=== PATIENT | female | born 1970 | race Caucasian/White ===

== ENCOUNTER 2019-12-17 17:31 | Inpatient (IN) | payer OTHER ==
--- NOTE | 2019-12-17 18:14 | PDOC ---
History of Present Illness - General Chief Complaint: Blood Transfusion Stated Complaint: BLOOD TRANSFUSION Time Seen by Provider: 12/17/19 17:46 History Source: Patient Exam Limitations: No Limitations - History of Present Illness Initial Comments: 12/17/19 18: 10 49-year-old female history of ulcerative colitis currently controlled also history of heavy vaginal bleeding and perimenopausal here today with a incidental finding of anemia. Patient was applying for a job getting preemployment work-up found to have a hemoglobin of 4. She does describe feeling fatigue lately which she attributed to a hectic schedule and many late nights working does have a history of very heavy vaginal bleeding previously would bleed around 10 days at a time however she has been perimenopausal and is not bleeding as often lately she is currently menstruating however. As far as ulcerative colitis has not had a flare in many years. She does state that she has a history of anemia previously and was taking iron and controlling with diet however she switched to a vegetarian diet and stopped taking iron due to constipation. Primary doctor is Dr. Alva Past History - Medical History Allergies/Adverse Reactions: Allergies Allergy/AdvReac Type Severity Reaction Status Date / Time No Known Allergies Allergy Verified 12/17/19 18:20 Home Medications: Ambulatory Orders NK [No Known Home Medication] 12/17/19 Review of Systems - Review of Systems Constitutional: No: Chills, Diaphoresis HEENTM: No: Eye Pain Respiratory: No: Cough, Orthopnea, Shortness of Breath Cardiac (ROS): No: Chest Pain ABD/GI: No: Abdominal Distended, Nausea Integumentary: No: Bruising, Change in Color Endocrine: Yes: Other (fatigue) All Other Systems: Reviewed and Negative *Physical Exam - Physical Exam 12/17/19 18:12 Awake alert no acute distress lungs are clear bilaterally heart is regular no mu rmurs rubs or gallops abdomen is soft and nontender extremities are warm well perfused skin is warm and dry extremities are without obvious edema patient does have varicosities to bilateral lower extremities neurologically she is awake alert and oriented x3 Heart Score/ECG Review #1 ECG reviewed & interpreted by me at: 18:20 General ECG Interpretation: Sinus Rhythm, Normal Rate (78), Normal Intervals, No acute ischemic changes ED Treatment Course - LABORATORY CBC & Chemistry Diagram: 12/17/19 18:10 Medical Decision Making - Medical Decision Making 12/17/19 18:13 49-year-old female history of previous anemia also colitis which is controlled and dysfunctional uterine bleeding currently undergoing menopause but is having her menstruation currently with anemia hemoglobin 4.0 differential includes lab error iron deficiency anemia lytic process less likely patient denies any recent infectious symptoms or jaundice. Plan basic CBC CMP type and screen will add iron studies and anemia work-upIf the patient's hemoglobin is that low she require admission and likely transfusion risk-benefit transfusion discussed the patient she is currently deciding whether or not she will be agreeable Discharge - Discharge Information Problems reviewed: Yes Clinical Impression/Diagnosis: Anemia Condition: Good - Admission Yes - Follow up/Referral Referrals: Quique Alva MD [Primary Care Provider] - - Patient Discharge Instructions - Post Discharge Activity
[2019-12-17 18:19] VITALS: BMI 20.8
[2019-12-17 18:40] LABS: MCHC 27.5 g/dl (32.0-36.0); MEAN CELL VOLUME 54.4 fl (80-96); MEAN PLT VOLUME 7.5 fl (7.5-11.1); PLATELET COUNT 716 K/MM3 (134-434); RBC 2.95 M/mm3 (3.60-5.2); RDW 22.8 % (11.6-15.6); WHITE BLOOD COUNT 8.6 K/mm3 (4.0-10.8)
[2019-12-17 18:42] LABS: HEMATOCRIT 16.1 % (32.4-45.2); HEMOGLOBIN 4.4 GM/dl (10.7-15.3)
[2019-12-17 18:44] LABS: ALBUMIN 3.5 g/dl (3.4-5.0); BILIRUBIN,TOTAL 0.4 mg/dl (0.2-1); CREATININE 0.8 mg/dl (0.55-1.3); POTASSIUM 4.4 mmol/L (3.5-5.1); TOT PROT 6.1 g/dl (6.4-8.2)
--- NOTE | 2019-12-17 20:51 | PDOC ---
*Physical Exam - Vital Signs Last Vital Signs Temp Pulse Resp BP Pulse Ox 97.9 F 86 16 118/56 L 100 12/17/19 17:32 12/17/19 17:32 12/17/19 17:32 12/17/19 17:32 12/17/19 17:32 ED Treatment Course - LABORATORY CBC & Chemistry Diagram: 12/17/19 18:10 12/17/19 17:53 - ADDITIONAL ORDERS Additional order review: Laboratory Results 12/17/19 12/17/19 12/17/19 18:15 18:10 17:53 Sodium 136 Potassium 4.4 Chloride 107 Carbon Dioxide 22 Anion Gap 7 L BUN 11.0 Creatinine 0.8 Est GFR (CKD-EPI)AfAm 100.33 Est GFR (CKD-EPI)NonAf 86.57 Random Glucose 101 Calcium 9.0 Iron 6 L TIBC 432 Total Bilirubin 0.4 AST 20 ALT 14 Alkaline Phosphatase 70 LD Total 150 Total Protein 6.1 L Albumin 3.5 Serum Folate 11 Blood Type O POSITIVE O POSITIVE Antibody Screen Negative Crossmatch See Detail 12/17/19 18:10 RBC 2.95 L MCV 54.4 L MCHC 27.5 L RDW 22.8 H MPV 7.5 Neutrophils % No Result Required. Lymphocytes % No Result Required. ED Progress Note - Progress Note Progress Note: Care of this patient received from Dr. Stewart. The patient will be transfused with 2 units of packed red blood cells for her hemoglobin up to 4.4/hematocrit 16.1. Abdominal/pelvic CT also ordered for work-up of her anemia and weakness CT performed and interpreted by Dr. Dumont of the radiology staff: No evidence of acute pathology in the abdomen or pelvis Medical Decision Making - Medical Decision Making 12/17/19 21:59 [facility] The patient will be admitted to Dr. Leonor Morales's service, [facility] bed Discharge - Discharge Information Problems reviewed: Yes Clinical Impression/Diagnosis: Anemia Condition: Stable - Admission Yes - Follow up/Referral - Patient Discharge Instructions - Post Discharge Activity
--- OUTSIDE RECORDS SUMMARY | 2019-12-17 22:09 | XMS ---
:1970 Author Organization [facility] Support Name Relationship Address Phone [facility] Unavailable [address] [place] [place] [address] [place] [address] [place] [address] Re-disclosure Warning The records that you are about to access may contain information from federally- assisted alcohol or drug abuse programs. If such information is present, then the following federally mandated warning applies: This information has been disclosed to you from records protected by federal confidentiality rules (42 CFR part 2). The federal rules prohibit you from making any further disclosure of this information unless further disclosure is expressly permitted by the written consent of the person to whom it pertains or as otherwise permitted by 42 CFR part 2. A general authorization for the release of medical or other information is NOT sufficient for this purpose. The Federal rules restrict any use of the information to criminally investigate or prosecute any alcohol or drug abuse patient.The records that you are about to access may contain highly sensitive health information, the redisclosure of which is protected by Article 27-F of the [facility] Public Health law. If you continue you may haveaccess to information: Regarding HIV / AIDS; Provided by facilities licensed or operated by the [facility] Office of Mental Health; or Provided by the [facility] Office for People With Developmental Disabilities. If such information is present, then the following [facility] mandated warning applies: This information has been disclosed to you from confidential records which are protected by state law. State law prohibits you from making any further disclosure of this information without the specific written consent of the person to whom it pertains, or as otherwise permitted by law. Any unauthorized further disclosure in violation of state law may result in a fine or half-way sentence or both. A general authorization for the release of medical or other information is NOT sufficient authorization for further disclosure. Insurance Providers Payer name Policy type Policy ID Covered Covered democrat's Policy P skip / Coverage democrat ID relationship to [employer] Inf ormation type ruelas [place] [id number] [facility]
[2019-12-17 23:18] LABS: ANISOCYTOSIS 3+
[2019-12-17 23:19] LABS: PLATELET ESTIMATE INCREASED
--- NOTE | 2019-12-17 23:23 | HP ---
CHIEF COMPLAINT: weakness, here with severe anemia PCP: Dr. Alva HISTORY OF PRESENT ILLNESS: 49-year-old female with a past medical history of anemia, ulcerative colitis currently in remission, heavy menstrual bleeding, now has menstrual bleeding/cycle and perimenopausal who presents today with an incidental finding of severe anemia. She was applying for a job getting pre employment work-up and she was found to have a hemoglobin of 4.4 and hct 16.1. She does describe feeling fatigue lately which she attributed to a hectic schedule and many late nights working . She has a history of heavy vaginal bleeding previously would bleed around 10 days at a time however she has been perimenopausal and is not bleeding as often lately she is currently menstruating however. She denies symptoms of chest pain, shortness of breath, dizziness, syncopy, palpitations, fever, chills or malasie. ER course was notable for: (1)severe anemia- hgb 4.4, hct 16.1, receiving 2 Units PRBC's (2) iron level low Recent Travel: no PAST MEDICAL HISTORY: anemia ulcerative colitis PAST SURGICAL HISTORY: none Social History: Smoking:no Alcohol:no Drugs: no Family History Allergies No Known Allergies Allergy (Verified 12/17/19 18:20) HOME MEDICATIONS: Home Medications Medication Instructions Recorded NK [No Known Home Medication] 12/17/19 REVIEW OF SYSTEMS CONSTITUTIONAL: Absent: fever, chills, diaphoresis, fatigue, malaise, loss of appetite, weight change HEENT: Absent: rhinorrhea, nasal congestion, throat pain, throat swelling, difficulty swallowing, mouth swelling, ear pain, eye pain, visual changes CARDIOVASCULAR: Absent: chest pain, syncope, palpitations, irregular heart rate, lightheadedness, peripheral edema RESPIRATORY: Absent: cough, shortness of breath, dyspnea with exertion, orthopnea, wheezing, stridor, hemoptysis GASTROINTESTINAL: Absent: abdominal pain, abdominal distension, nausea, vomiting, diarrhea, constipation, melena, hematochezia GENITOURINARY: Absent: dysuria, frequency, urgency, hesitancy, hematuria, flank pain, genital pain, heavy menstrual bleeding MUSCULOSKELETAL: Absent: myalgia, arthralgia, joint swelling, back pain, neck pain SKIN: Absent: rash, itching, pallor HEMATOLOGIC/IMMUNOLOGIC: Absent: easy bleeding, easy bruising, lymphadenopathy, frequent infections ENDOCRINE: Absent: unexplained weight gain, unexplained weight loss, heat intolerance, cold intolerance NEUROLOGIC: Absent: headache, focal weakness or paresthesias, dizziness, unsteady gait, seizure, mental status changes, bladder or bowel incontinence PSYCHIATRIC: Absent: anxiety, depression, suicidal or homicidal ideation, hallucinations. PHYSICAL EXAMINATION Vital Signs - 24 hr 12/17/19 12/17/19 12/17/19 17:32 20:51 21:00 Temperature 97.9 F 97.9 F Pulse Rate 86 86 Respiratory 16 16 16 Rate Blood Pressure 118/56 L 118/56 L O2 Sat by Pulse 100 100 100 Oximetry (%) 12/17/19 23:04 Temperature 98.4 F Pulse Rate 73 Respiratory 18 Rate Blood Pressure 111/57 L O2 Sat by Pulse 100 Oximetry (%) General no acute distress Vital signs reviewed afebrile Neck no JVD Lungs CTA nonlabored breathing effort no use of accessory muscles Heart s1s2 rate regular + murmur Abdomen soft nontender nondistended Extremities warm to touch bilateral lower extremity swelling present no pain Skin nail beds and lips pink Mood calm Laboratory Results - last 24 hr 12/17/19 12/17/19 12/17/19 17:53 18:10 18:10 WBC 8.6 RBC 2.95 L Hgb 4.4 L* Hct 16.1 L MCV 54.4 L MCH 15.0 L MCHC 27.5 L RDW 22.8 H Plt Count 716 H MPV 7.5 Neutrophils % No Result Required. Lymphocytes % No Result Required. Sodium 136 Potassium 4.4 Chloride 107 Carbon Dioxide 22 Anion Gap 7 L BUN 11.0 Creatinine 0.8 Est GFR (CKD-EPI)AfAm 100.33 Est GFR (CKD-EPI)NonAf 86.57 Random Glucose 101 Calcium 9.0 Iron 6 L TIBC 432 Total Bilirubin 0.4 AST 20 ALT 14 Alkaline Phosphatase 70 LD Total 150 Total Protein 6.1 L Albumin 3.5 Serum Folate 11 Blood Type O POSITIVE Antibody Screen Negative Crossmatch See Detail 12/17/19 18:15 WBC RBC Hgb Hct MCV MCH MCHC RDW Plt Count MPV Neutrophils % Lymphocytes % Sodium Potassium Chloride Carbon Dioxide Anion Gap BUN Creatinine Est GFR (CKD-EPI)AfAm Est GFR (CKD-EPI)NonAf Random Glucose Calcium Iron TIBC Total Bilirubin AST ALT Alkaline Phosphatase LD Total Total Protein Albumin Serum Folate Blood Type O POSITIVE Antibody Screen Crossmatch ASSESSMENT/PLAN: This is a 49-year-old female with a past medical history of anemia, ulcerative colitis currently in remission, heavy menstrual bleeding, now has menstrual bleeding/cycle and perimenopausal who presented with an incidental finding of severe anemia. She is being admitted to the Medicine Team for medical management for severe symptomatic anemia and for blood transfusions. #1 microcytic anemia(severe, symptomatic) likely related to heavy menstrual bleeding and iron deficiency bp stable, no tachycardia --transfuse 2 Units PRBC's --repeat CBC in am iron level low, TIBC normal, thrombocytosis --c/w folic acid --consider heme evaluation in inpatient versus outpatient setting #2 ulcerative colitis not active #3 r/o COVID --f/up on COVID test results --maintain strict isolation and droplet precautions --maintain o2 sat >90% DVT Prophylaxis --SCD'S FEN no IVF indicated BMP daily and replete electrolytes as needed regular diet Family Medical History Family History: Denies Visit type - Emergency Visit Emergency Visit: Yes ED Registration Date: 12/17/19 Care time: The patient presented to the Emergency Department on the above date and was hospitalized for further evaluation of their emergent condition. - New Patient This patient is new to me today: Yes Date on this admission: 12/18/19 - Critical Care Critical Care patient: No
[2019-12-18 09:17] LABS: HEMATOCRIT 23.3 % (32.4-45.2); MCHC 29.2 g/dl (32.0-36.0); MEAN CELL VOLUME 64.2 fl (80-96); MEAN PLT VOLUME 7.7 fl (7.5-11.1); PLATELET COUNT 584 K/MM3 (134-434); RBC 3.63 M/mm3 (3.60-5.2); RDW 33.5 % (11.6-15.6); WHITE BLOOD COUNT 8.1 K/mm3 (4.0-10.8)
[2019-12-18 09:19] LABS: CALCIUM 8.8 mg/dl (8.5-10); CREATININE 0.6 mg/dl (0.55-1.3); MAGNESIUM 2.1 mg/dL (1.8-2.4)
[2019-12-18 09:20] LABS: MCH 18.8 pg (25.7-33.7)
[2019-12-18 09:35] LABS: HEMOGLOBIN 6.8 GM/dl (10.7-15.3)
--- NOTE | 2019-12-18 09:55 | EKG ---
Test Reason : Blood Pressure : / mmHG Vent. Rate : 078 BPM Atrial Rate : 078 BPM P-R Int : 170 ms QRS Dur : 088 ms QT Int : 364 ms P-R-T Axes : 067 015 043 degrees QTc Int : 414 ms NORMAL SINUS RHYTHM NORMAL ECG NO PREVIOUS ECGS AVAILABLE Confirmed by Santos Watson MD ([id number]) on 12/18/2019 9:54:13 AM Referred By: Confirmed By:Santos Watson MD
--- NOTE | 2019-12-18 11:58 | PN ---
Physical Exam: SUBJECTIVE: Patient seen and examined OBJECTIVE: Vital Signs Period Temp Pulse Resp BP Sys/[place] Pulse Ox Last 24 Hr 97.5 F-98.5 F 62-86 16-18 98-118/48-73 99-100 GENERAL: The patient is awake, alert, and fully oriented, in no acute distress. HEAD: Normal with no signs of trauma. EYES: PERRL, extraocular movements intact, sclera anicteric, conjunctiva clear. No ptosis. ENT: Ears normal, nares patent, oropharynx clear without exudates, moist mucous membranes. NECK: Trachea midline, full range of motion, supple. LUNGS: Breath sounds equal, clear to auscultation bilaterally, no wheezes, no crackles, no accessory muscle use. HEART: Regular rate and rhythm, S1, S2 without murmur, rub or gallop. ABDOMEN: Soft, nontender, nondistended, normoactive bowel sounds, no guarding, no rebound, no hepatosplenomegaly, no masses. EXTREMITIES: 2+ pulses, warm, well-perfused, no edema. NEUROLOGICAL: Cranial nerves II through XII grossly intact. Normal speech, gait not observed. PSYCH: Normal mood, normal affect. SKIN: Warm, dry, normal turgor, no rashes or lesions noted Laboratory Results - last 24 hr 12/17/19 12/17/19 12/17/19 17:53 18:10 18:10 WBC 8.6 RBC 2.95 L Hgb 4.4 L* Hct 16.1 L MCV 54.4 L MCH 15.0 L MCHC 27.5 L RDW 22.8 H Plt Count 716 H MPV 7.5 Neutrophils % No Result Required. Neutrophils % (Manual) 75.0 Lymphocytes % No Result Required. Lymphocytes % (Manual) 19.0 Monocytes % (Manual) 6 Hypochromia 3+ Platelet Estimate Increased Anisocytosis 3+ Microcytosis 3+ Haptoglobin 74 Sodium 136 Potassium 4.4 Chloride 107 Carbon Dioxide 22 Anion Gap 7 L BUN 11.0 Creatinine 0.8 Est GFR (CKD-EPI)AfAm 100.33 Est GFR (CKD-EPI)NonAf 86.57 Random Glucose 101 Calcium 9.0 Magnesium Iron 6 L TIBC 432 Transferrin 338 Total Bilirubin 0.4 AST 20 ALT 14 Alkaline Phosphatase 70 LD Total 150 Total Protein 6.1 L Albumin 3.5 Serum Folate 11 Blood Type Antibody Screen Crossmatch Crossmatch IS Only 12/17/19 12/17/19 12/18/19 18:10 18:15 08:41 WBC 8.1 RBC 3.63 Hgb 6.8 L* Hct 23.3 L D MCV 64.2 L MCH 18.8 L MCHC 29.2 L RDW 33.5 H Plt Count 584 H MPV 7.7 Neutrophils % Neutrophils % (Manual) Lymphocytes % Lymphocytes % (Manual) Monocytes % (Manual) Hypochromia Platelet Estimate Anisocytosis Microcytosis Haptoglobin Sodium Potassium Chloride Carbon Dioxide Anion Gap BUN Creatinine Est GFR (CKD-EPI)AfAm Est GFR (CKD-EPI)NonAf Random Glucose Calcium Magnesium Iron TIBC Transferrin Total Bilirubin AST ALT Alkaline Phosphatase LD Total Total Protein Albumin Serum Folate Blood Type O POSITIVE O POSITIVE Antibody Screen Negative Crossmatch See Detail Crossmatch IS Only See Detail 12/18/19 08:41 WBC RBC Hgb Hct MCV MCH MCHC RDW Plt Count MPV Neutrophils % Neutrophils % (Manual) Lymphocytes % Lymphocytes % (Manual) Monocytes % (Manual) Hypochromia Platelet Estimate Anisocytosis Microcytosis Haptoglobin Sodium 137 Potassium 5.0 Chloride 111 H Carbon Dioxide 23 Anion Gap 3 L BUN 16.0 Creatinine 0.6 Est GFR (CKD-EPI)AfAm 124.05 Est GFR (CKD-EPI)NonAf 107.03 Random Glucose 119 H Calcium 8.8 Magnesium 2.1 Iron TIBC Transferrin Total Bilirubin AST ALT Alkaline Phosphatase LD Total Total Protein Albumin Serum Folate Blood Type Antibody Screen Crossmatch Crossmatch IS Only ASSESSMENT/PLAN:
--- NOTE | 2019-12-18 13:49 | CON.OBG ---
Consult Consult Specialty:: die sinker Referred by:: Dipika Martinez Reason for Consultation:: Severe anemia - History of Present Illness Chief Complaint: Prolonged, heavy bleeding. Iron deficiency anemia. History of Present Illness: 46 y.o. W female, P 2, admitted w Hb of 4! Essentially asymptomatic. Transfused 2 P/C units w Hb up to 6. On her 3rd unit now. Hx of life-long menorrhagia. Heavier recently. Large clots. No die sinker check up for 14 years. - History Source History Provided By: Patient, Caregiver Limitations to Obtaining History: No Limitations - Past Medical History CONFECTIONERY MAKER: No: Alzheimer's, CVA, Dementia, Migraine, Multiple Sclerosis, Peripheral Neuropathy, Parkinson's, Seizure, Syncope, TIA, Vertigo, Other Cardio/Vascular: No: AFIB, Aneurysm, Aortic Insufficiency, Aortic Stenosis, CAD, CHF, Deep Vein Thrombosis, HTN, Hyperlipdemia, TN, Mitral Insufficiency, Mitral Stenosis, Murmur, Pulmonary Hypertension, Other Pulmonary: No: Asthma, Bronchitis, Cancer, COPD, O2 Dependent, Pneumonia, Previously Intubated, Pulmonary Embolus, Pulmonary Fibrosis, Sleep Apnea, Other Gastrointestinal: Yes: Ulcerative Colitis Hepatobiliary: No: Cirrhosis, Cholelithiasis, Cholecystitis, Choledocholithiasis, Hepatitis A, Hepatitis B, Hepatitis C, Other Renal/: No: Renal Failure, Renal Inusuff, BPH, Cancer, Hematuria, Hemodialysis, Neurogenic Bladder, Renal Calculi, UTI, Other Reproductive: No: Ectopic , Endometriosis, Fibroids, PID, Polycystic Ovary Syndrome, Postmenopausal, Other ...LMP: 12/17/19 ...: No Heme/Onc: Yes: Anemia Psych: No: Addictions, Anxiety, Bipolar, Depression, Panic, Psychosis, Schizophrenia, Other Musculoskeletal: No: Bursitis, Chronic low back pain, Hemiparesis, Hemiplegia, Osteoarthritis, Paraplegia, Other Rheumatology: No: Fibromyalgia, Gout, Lupus, Rheumatoid Arthritis, Sarcoidosis, Vasculitis, Other ENT: No: Allergic Rhinitis, Sinusitis, Other Endocrine: No: Montrose's Disease, Shutesbury's Disease, Diabetes Insipidus, Diabetes Mellitus, Hyperparathyroidism, Hyperthyroidism, Hypothyroidism, Osteopenia, SIADH, Other Dermatology: No: Basal Cell, Cellulitis, Eczema, Melanoma, Psoriasis, Squamous Cell, Other - Past Surgical History Past Surgical History: Yes: Colonoscopy. No: None, AAA Repair, AICD, Amputation, Appendectomy, Arthrosocopy, AV Fistula/Graft, Bariatric Surgery, Breast Biopsy, Bypass, CABG, Carotid Endarterectomy, Cataract Removal, Cholecystectomy, Colectomy, Colostomy, Craniotomy, , Cystectomy, Hernia Repair, Hysterectomy, Ileal Conduit, Ileosotomy, Joint Replacement, Kidney Transplant, Laminectomy, Liver Transplant, Mastectomy, Nephrectomy, Oopherectomy, Orchiectomy, Permanent Pacemaker, Prostatectomy, Splenectomy, Stent, Thoracotomy, TURP, Tonsillectomy, Tubal Ligation, Upper Endoscopy, Valve Replacement, Vasectomy, Vein Stripping/Ligation - Smoking History Smoking history: Former smoker Have you smoked in the past 12 months: Yes If you are a former smoker, when did you quit?: 2019 - Social History Usual Living Arrangement: With Spouse Home Medications - Allergies Allergies/Adverse Reactions: Allergies Allergy/AdvReac Type Severity Reaction Status Date / Time No Known Allergies Allergy Verified 12/17/19 18:20 - Home Medications Home Medications: Ambulatory Orders NK [No Known Home Medication] 12/17/19 Family Medical History Family History: Unable to Obtain Review of Systems - Review of Systems Constitutional: reports: No Symptoms Eyes: reports: No Symptoms HENT: reports: No Symptoms Neck: reports: No Symptoms Cardiovascular: reports: No Symptoms Respiratory: reports: No Symptoms Gastrointestinal: reports: No Symptoms Genitourinary: reports: No Symptoms Breasts: reports: No Symptoms Reported Musculoskeletal: reports: No Symptoms Integumentary: reports: No Symptoms Neurological: reports: No Symptoms Endocrine: reports: No Symptoms Hematology/Lymphatic: reports: No Symptoms Psychiatric: reports: No Symptoms Physical Exam-AUTO SUSPENSION AND STEERING MECHANIC Vital Signs: Vital Signs Temperature 98.5 F 12/18/19 07:00 Pulse Rate 74 12/18/19 07:00 Respiratory Rate 18 12/18/19 07:00 Blood Pressure 98/73 12/18/19 07:00 O2 Sat by Pulse Oximetry (%) 100 12/18/19 07:00 Labs: CBC, BMP 12/18/19 08:41 12/18/19 08:41 Problem List - Problems (1) Menorrhagia Code(s): N92.0 - EXCESSIVE AND FREQUENT MENSTRUATION WITH REGULAR CYCLE (2) Anemia Code(s): D64.9 - ANEMIA, UNSPECIFIED Assessment/Plan Long hx of heavy bleedings, iron deficiency anemia. PE deferred. TV sono reviewed. No significant pathology. Uterus mildly enlarged. EE about 5 mm. Adnexa ess. WNL. Report is pending. Plan: D/c on Aygestin 5 mg BID. Iron, vit. C, folic acid. Employment Legal Assistant exam, Pap smear, mammography. Endometrial sampling. Further plans after this is completed. Thank you.
--- NOTE | 2019-12-18 14:40 | DS ---
Physical Exam: SUBJECTIVE: Patient seen and examined at bedside. Feels better after transfusion of 2U PRBCs overnight. Less fatigued. OBJECTIVE: Vital Signs Period Temp Pulse Resp BP Sys/[place] Pulse Ox Last 24 Hr 97.5 F-98.5 F 57-86 16-18 98-118/48-73 99-100 PHYSICAL EXAM GENERAL: The patient is awake, alert, and fully oriented, in no acute distress. HEAD: Normal with no signs of trauma. EYES: PERRL, extraocular movements intact, sclera anicteric, conjunctiva clear. ENT: Ears normal, nares patent, oropharynx clear without exudates, moist mucous membranes. LUNGS: Breath sounds equal, clear to auscultation bilaterally, no wheezes, no crackles, no accessory muscle use. HEART: Regular rate and rhythm, S1, S2 without murmur, rub or gallop. ABDOMEN: Soft, nontender, nondistended EXTREMITIES: 2+ pulses, warm, well-perfused, no edema. NEUROLOGICAL: Cranial nerves II through XII grossly intact. Normal speech, gait not observed. SKIN: Warm, dry, normal turgor LABS Laboratory Results - last 24 hr 12/17/19 12/17/19 12/17/19 17:53 18:10 18:10 WBC 8.6 RBC 2.95 L Hgb 4.4 L* Hct 16.1 L MCV 54.4 L MCH 15.0 L MCHC 27.5 L RDW 22.8 H Plt Count 716 H MPV 7.5 Neutrophils % No Result Required. Neutrophils % (Manual) 75.0 Lymphocytes % No Result Required. Lymphocytes % (Manual) 19.0 Monocytes % (Manual) 6 Hypochromia 3+ Platelet Estimate Increased Anisocytosis 3+ Microcytosis 3+ Haptoglobin 74 Sodium 136 Potassium 4.4 Chloride 107 Carbon Dioxide 22 Anion Gap 7 L BUN 11.0 Creatinine 0.8 Est GFR (CKD-EPI)AfAm 100.33 Est GFR (CKD-EPI)NonAf 86.57 Random Glucose 101 Calcium 9.0 Magnesium Iron 6 L TIBC 432 Transferrin 338 Total Bilirubin 0.4 AST 20 ALT 14 Alkaline Phosphatase 70 LD Total 150 Total Protein 6.1 L Albumin 3.5 Serum Folate 11 COVID-19 (VANDA) Blood Type Antibody Screen Crossmatch Crossmatch IS Only 12/17/19 12/17/19 12/17/19 18:10 18:15 18:30 WBC RBC Hgb Hct MCV MCH MCHC RDW Plt Count MPV Neutrophils % Neutrophils % (Manual) Lymphocytes % Lymphocytes % (Manual) Monocytes % (Manual) Hypochromia Platelet Estimate Anisocytosis Microcytosis Haptoglobin Sodium Potassium Chloride Carbon Dioxide Anion Gap BUN Creatinine Est GFR (CKD-EPI)AfAm Est GFR (CKD-EPI)NonAf Random Glucose Calcium Magnesium Iron TIBC Transferrin Total Bilirubin AST ALT Alkaline Phosphatase LD Total Total Protein Albumin Serum Folate COVID-19 (VANDA) Not detected Blood Type O POSITIVE O POSITIVE Antibody Screen Negative Crossmatch See Detail Crossmatch IS Only See Detail 12/18/19 12/18/19 08:41 08:41 WBC 8.1 RBC 3.63 Hgb 6.8 L* Hct 23.3 L D MCV 64.2 L MCH 18.8 L MCHC 29.2 L RDW 33.5 H Plt Count 584 H MPV 7.7 Neutrophils % Neutrophils % (Manual) Lymphocytes % Lymphocytes % (Manual) Monocytes % (Manual) Hypochromia Platelet Estimate Anisocytosis Microcytosis Haptoglobin Sodium 137 Potassium 5.0 Chloride 111 H Carbon Dioxide 23 Anion Gap 3 L BUN 16.0 Creatinine 0.6 Est GFR (CKD-EPI)AfAm 124.05 Est GFR (CKD-EPI)NonAf 107.03 Random Glucose 119 H Calcium 8.8 Magnesium 2.1 Iron TIBC Transferrin Total Bilirubin AST ALT Alkaline Phosphatase LD Total Total Protein Albumin Serum Folate COVID-19 (VANDA) Blood Type Antibody Screen Crossmatch Crossmatch IS Only HOSPITAL COURSE: Date of Admission:12/17/19 Date of Discharge: 12/18/19 Pre hospital course 49-year-old female with a past medical history of iron-deficiency anemia, ulcerative colitis currently in remission, heavy menstrual bleeding, now has menstrual bleeding/cycle and perimenopausal who presents today with an incidental finding of severe anemia. She was applying for a job getting pre employment work-up and she was found to have a hemoglobin of 4.4 and hct 16.1. She has been feeling more fatigued than usual. She has a lifelong history of menorrhagia. Last [facility] checkup was 14 years ago. ER course was notable for: (1)severe anemia- hgb 4.4, hct 16.1 (2) iron level low Subsequent hospital course Menorrhagia Chronic iron-deficiency anemia Chronic blood-loss anemia Patient was transfused 2U PRBC with a good response Hgb 4.4-->6.8. Was transfused a third unit prior to discharge. Was hemodynamically stable at all times. Transvaginal US showed no significant pathology per Dr. Hernandez, [facility]. Discharged on Aygestin 5mg BID, iron supplements, Vitamin C, and folic acid. Patient to follow up with Dr. Hernandez. Minutes to complete discharge: 35 Discharge Summary Problems reviewed: Yes Reason For Visit: ANEMIA Current Active Problems Anemia (Acute) Menorrhagia (Acute) Condition: Stable - Instructions Referrals: Quique Alva MD [Primary Care Provider] - - Home Medications Comprehensive Discharge Medication List: Ambulatory Orders NK [No Known Home Medication] 12/17/19 This patient is new to me today: Yes Date on this admission: 12/18/19 Emergency Visit: Yes ED Registration Date: 12/17/19 Care time: The patient presented to the Emergency Department on the above date and was hospitalized for further evaluation of their emergent condition. Critical Care patient: No - Discharge Referral Referred to [facility] No
[2019-12-18] MEDS ORDERED: FUROSEMIDE 40 MG/4 ML INJECTABLE VIAL IVPUSH ONE (15:00)
[2019-12-18 15:43] VITALS: BP 115/70; PULSE 78; TEMP 97.7
[2019-12-18 17:20] LABS: HEMATOCRIT 28.3 % (32.4-45.2); HEMOGLOBIN 8.4 GM/dl (10.7-15.3); MCHC 29.8 g/dl (32.0-36.0); MEAN CELL VOLUME 67.4 fl (80-96); MEAN PLT VOLUME 8.1 fl (7.5-11.1); PLATELET COUNT 646 K/MM3 (134-434); RBC 4.21 M/mm3 (3.60-5.2); RDW 34.5 % (11.6-15.6); WHITE BLOOD COUNT 7.8 K/mm3 (4.0-10.8)
== END 2019-12-18 17:30 | disposition home or self-care (01) | DRG 812 ==
LOC: FER 17:31 → FM/S 20:51
PROVIDERS: ADMIT Hospitalist; ATTEND Nurse Practitioner Acute Care
PROC: 30233N1 Transfusion of Nonautologous Red Blood Cells into Peripheral Vein, Percutaneous Approach (ICD-10-PCS; principal; 2019-12-18)
DX: D50.9 Iron deficiency anemia, unspecified (principal); N92.0 Excessive and frequent menstruation with regular cycle
CPT/HCPCS: 36415; 36430; 74177-TC; 76830-TC; 76856-TC; 80048; 80053; 82746; 83010; 83540; 83550; 83615; 83735; 84466; 85025; 85027; 86850; 86900; 86901; 86922; 93005; 99285-25; C9803; P9058; U0003

== ENCOUNTER 2023-12-24 12:15 | Day surgery (SDC) | payer BC ==
[2023-12-24] MEDS: IRON SUCROSE INJECTION 200 MG in SODIUM CHLORIDE 100 ML IVPB ONE (12:53)
[2023-12-24 14:01] VITALS: BP 111/65; PULSE 75; RESP 14; TEMP 98.4
== END 2023-12-24 14:01 | disposition home or self-care (01) ==
LOC: FINFUSION 12:15 → FM/S 12:16 → FINFUSION 14:01
PROVIDERS: ATTEND Internal Medicine
PROC: 3E033GC Introduction of Other Therapeutic Substance into Peripheral Vein, Percutaneous Approach (ICD-10-PCS; principal; 2023-12-24)
DX: D50.0 Iron deficiency anemia secondary to blood loss (chronic) (principal)
CPT/HCPCS: 96365; J1756

== ENCOUNTER 2023-12-31 12:30 | Day surgery (SDC) | payer BC ==
[2023-12-31] MEDS: IRON SUCROSE INJECTION 200 MG in SODIUM CHLORIDE 100 ML IVPB ONE (13:00)
[2023-12-31 14:21] VITALS: BP 117/73; PULSE 68; RESP 20; TEMP 98.2
== END 2023-12-31 14:10 | disposition home or self-care (01) ==
LOC: FINFUSION 12:30 → FM/S 12:31 → FINFUSION 14:10
PROVIDERS: ATTEND Internal Medicine
PROC: 3E033GC Introduction of Other Therapeutic Substance into Peripheral Vein, Percutaneous Approach (ICD-10-PCS; principal; 2023-12-31)
DX: D50.9 Iron deficiency anemia, unspecified (principal)
CPT/HCPCS: 96365; J1756